=== PATIENT | female | born 1960 | race Caucasian/White ===

== ENCOUNTER → 2019-04-23 11:48 | Outpatient (CLI) | payer OTHER, SELFPAY ==
--- NOTE | 2019-04-23 | DI.US.S_ITS ---
PROCEDURE: US THYROID INDICATIONS: THYROTOXICOSIS, UNSPECIFIED WITHOUT THYROTOXIC CRISIS TECHNIQUE: Real-time scanning was performed of the thyroid gland, with image documentation. COMPARISON: [facility], US, THYROID, 10/05/2009, 9:03. FINDINGS: Right: Thyroid lobe measures 5.7 x 1.9 x 1.8 cm, and is homogeneous in echotexture. Left: Thyroid lobe measures 4.8 x 1.4 x 1.4 cm, and is homogenous in echotexture. Isthmus: 4.0 mm thick. Nodule number: 1 Location: Right mid Size: Unchanged at 2.8 x 1.5 x 2.1 cm. Composition: Predominately solid Echogenicity: Hypoechoic Shape: wider than tall. Margins: Smooth Echogenic foci: Internal punctate foci. Total points: 7 ACR TI-RADS category: Highly suspicious Nodule number: 2 Location: Right isthmus Size: Decreased at 0.9 x 20 mg 0 cm. Composition: Solid Echogenicity: Hypoechoic Shape: wider than tall. Margins: Smooth Echogenic foci: None Total points: 4 ACR TI-RADS category: Moderately suspicious Nodule number: 3 Location: Right mid Size: 0.9 x 0.9 x 0.9 cm. Composition: Solid Echogenicity: Hypoechoic Shape: wider than tall. Margins: Smooth Echogenic foci: None Total points: 4 ACR TI-RADS category: Moderately suspicious Nodule number: 4 Location: Right inferior Size: No measuring 1.8 x 1.4 1.3 cm Composition: Solid Echogenicity: Hypoechoic Shape: wider than tall. Margins: Smooth Echogenic foci: Macrocalcification Total points: 5 ACR TI-RADS category: Moderately suspicious Nodule number: 5 Location: Left lateral Size: Unchanged at 0.8 x 0.6 x 0.6 Composition: Solid Echogenicity: Hypoechoic Shape: wider than tall. Margins: Smooth Echogenic foci: Punctate echogenic foci Total points: 7 ACR TI-RADS category: Highly suspicious Nodule number: 6 Location: Left inferior Size: Unchanged 0.7 x 0.5 x 0.7 Composition: Solid Echogenicity: Hypoechoic Shape: wider than tall. Margins: Smooth Echogenic foci: Internal echogenic punctate foci Total points: 7 ACR TI-RADS category: Highly suspicious IMPRESSION: There are 2 new right thyroid nodules; otherwise nodules appear stable from prior examination. Recommend continued followup ultrasound and/or biopsy as detailed below. ACR TI-RADS definitions and recommendations: TI-RADS 1 (benign): 0 points. FNA not needed. TI-RADS 2 (not suspicious): 2 points. FNA not needed. TI-RADS 3 (mildly suspicious): 3 points. * FNA if 2.5 cm or larger, follow up if 1.5 cm or larger (at 1, 3, and 5 years). TI-RADS 4 (moderately suspicious): 4-6 points. * FNA if 1.5 cm or larger, follow up if 1 cm or larger (at 1, 2, 3, and 5 years). TI-RADS 5 (highly suspicious): 7 points or more. * FNA if 1 cm or larger, follow up if 0.5 cm or larger (every year for 5 years). Dictated by: Tony ARZATE Interpreted: Travis Lama MD on 04/23/2019 at 16:05 Approved by: Travis Lama M.D. on 04/23/2019 at 21:17
== END ==
PROVIDERS: PCP Nurse Practitioner Family; Visit Provider Nurse Practitioner Family
DX: E05.90 Thyrotoxicosis, unspecified without thyrotoxic crisis or storm (principal); E04.2 Nontoxic multinodular goiter
CPT/HCPCS: 76536

== ENCOUNTER → 2020-04-05 15:42 | Outpatient (CLI) | payer OTHER, SELFPAY ==
--- NOTE | 2020-04-05 15:45 | DI.US.S_ITS ---
PROCEDURE: US THYROID INDICATIONS: Nontoxic multinodular goiter TECHNIQUE: Real-time scanning was performed of the thyroid gland, with image documentation. COMPARISON: [facility], US, US THYROID, 04/23/2019, 12:06. FINDINGS: Right: Thyroid lobe measures 5.8 x 1.8 x 2.7 cm, and is homogeneous in echotexture. Left: Thyroid lobe measures 5.3 x 1.4 x 2.0 cm, and is homogenous in echotexture. Isthmus: 4.0 mm thick. Nodule number: 1 Location: Right mid Size: Unchanged at 2.9 x 1.6 x 1.9 cm. Composition: Mixed cystic and solid Echogenicity: Heterogeneous Shape: wider than tall. Margins: Smooth Echogenic foci: None Total points: 3 ACR TI-RADS category: Mildly suspicious Nodule number: 2 Location: Right isthmus Size: Unchanged 0.9 x 0.7 x 0.3 cm. Composition: Solid Echogenicity: Hypoechoic Shape: wider than tall. Margins: Smooth Echogenic foci: None Total points: 4 ACR TI-RADS category: Moderately suspicious Nodule number: 3 Location: Right mid Size: Unchanged 1.0 x 0.7 x 0.8 cm. Composition: Solid Echogenicity: Hypoechoic Shape: wider than tall. Margins: Smooth Echogenic foci: None Total points: 4 ACR TI-RADS category: Moderately suspicious Nodule number: 4 Location: Right inferior Size: Decreased at 1.4 x 1.1 x 1.3 cm. Composition: Solid Echogenicity: Heterogeneous Shape: wider than tall. Margins: Ill-defined Echogenic foci: Macro calcification Total points: 5 ACR TI-RADS category: Moderately suspicious Nodule number: 5 Location: Left mid Size: Unchanged 0.8 x 0.5 x 0.6 Composition: Solid Echogenicity: Heterogeneous Shape: wider than tall. Margins: Smooth Echogenic foci: None Total points: 5 ACR TI-RADS category: Moderately suspicious Nodule number: 6 Location: Left inferior Size: Unchanged 0.8 x 0.5 x 0.9 Composition: Solid Echogenicity: Hypoechoic Shape: wider than tall. Margins: Smooth Echogenic foci: None Total points: 4 ACR TI-RADS category: Moderately suspicious IMPRESSION: Stable appearance of bilateral thyroid nodules. ACR TI-RADS definitions and recommendations: TI-RADS 1 (benign): 0 points. FNA not needed. TI-RADS 2 (not suspicious): 2 points. FNA not needed. TI-RADS 3 (mildly suspicious): 3 points. * FNA if 2.5 cm or larger, follow up if 1.5 cm or larger (at 1, 3, and 5 years). TI-RADS 4 (moderately suspicious): 4-6 points. * FNA if 1.5 cm or larger, follow up if 1 cm or larger (at 1, 2, 3, and 5 years). TI-RADS 5 (highly suspicious): 7 points or more. * FNA if 1 cm or larger, follow up if 0.5 cm or larger (every year for 5 years). Dictated by: Tony ARZATE Interpreted: Katty Saavedra MD on 04/05/2020 at 16:43 Approved by: Katty Saavedra M.D. on 04/05/2020 at 17:28
== END ==
PROVIDERS: PCP Internal Medicine; Referring Provider Internal Medicine; Visit Provider Internal Medicine
DX: E04.2 Nontoxic multinodular goiter (principal)
CPT/HCPCS: 76536

== ENCOUNTER → 2021-03-14 10:49 | Outpatient (CLI) | payer OTHER, SELFPAY ==
--- NOTE | 2021-03-14 | DI.RAD.S_ITS ---
PROCEDURE: XR CHEST 2V INDICATIONS: COUGH TECHNIQUE: 2 views of the chest were acquired. COMPARISON: None. FINDINGS: Surgical changes and devices: None. Lungs and pleura: Minimal streaky bibasilar opacities likely representing atelectasis. No focal consolidation. No pleural effusions or pneumothorax. Mediastinum: Mediastinal contours are normal. Heart size is normal. Bones and chest wall: No suspicious bony abnormalities. Soft tissues appear unremarkable. IMPRESSION: Minimal streaky bibasilar opacities likely representing atelectasis. No focal consolidation. Dictated by: Antonio Melendrez M.D. on 03/14/2021 at 11:27 Approved by: Antonio Melendrez M.D. on 03/14/2021 at 11:27
== END ==
PROVIDERS: PCP Internal Medicine; Referring Provider Internal Medicine; Visit Provider Internal Medicine
DX: R05.9 Cough, unspecified (principal)
CPT/HCPCS: 71046

== ENCOUNTER → 2021-05-16 12:46 | Outpatient (CLI) | payer OTHER, SELFPAY ==
--- NOTE | 2021-05-16 | DI.US.S_ITS ---
PROCEDURE: US THYROID INDICATIONS: nontoxic multinodular goiter TECHNIQUE: Real-time scanning was performed of the thyroid gland, with image documentation. COMPARISON: [facility], US, US THYROID, 04/05/2020, 16:09. FINDINGS: Right: Thyroid lobe measures 6 x 1.8 x 2.9 cm, and is homogeneous in echotexture. Left: Thyroid lobe measures 5.1 x 2.2 x 1.3 cm, and is homogenous in echotexture. Isthmus: 4 mm thick. Nodule number: 1 (previously nodule 5) Location: Left mid Size: 0.8 x 0.5 x 0.8 cm (previously 0.8 x 0.5 x 0.6 cm) Composition: Solid Echogenicity: Hypoechoic Shape: Wider than tall Margins: Smooth Echogenic foci: None Total points: 4 ACR TI-RADS category: Moderately suspicious Nodule number: 2 (previously nodule 6) Location: Left inferior Size: 0.8 x 0.6 x 0.5 cm (previously 0.8 x 0.5 x 0.9 cm) Composition: Solid Echogenicity: Hypoechoic Shape: Wider than tall Margins: Smooth Echogenic foci: None Total points: 4 ACR TI-RADS category: Moderately suspicious Nodule number: 3 (previously nodule 2) Location: Right isthmus Size: 0.9 x 0.6 x 0.6 cm (previously 0.9 x 0.7 x 0.7 cm) Composition: Solid Echogenicity: Hypoechoic Shape: Wider than tall Margins: Smooth Echogenic foci: None Total points: 4 ACR TI-RADS category: Moderately suspicious Nodule number: 4 (previously nodule 1) Location: Right mid Size: 3.1 x 1.6 x 1.9 cm (previously 2.9 x 1.6 x 1.9 cm) Composition: Mixed cystic and solid Echogenicity: Heterogeneous Shape: Wider than tall Margins: Smooth Echogenic foci: None Total points: 3 ACR TI-RADS category: Mildly suspicious Nodule number: 5 (previously nodule 3) Location: Right mid Size: 0.9 x 0.9 x 0.8 cm (previously 1.0 x 0.7 x 0.8 cm) Composition: Solid Echogenicity: Hypoechoic Shape: Wider than tall Margins: Smooth Echogenic foci: None Total points: 4 ACR TI-RADS category: Moderately suspicious Nodule number: 6 (previously nodule 4) Location: Right inferior Size: 1.2 x 1.3 x 1.3 cm (previously 1.4 x 1.2 x 1.3 cm) Composition: Predominantly solid Echogenicity: Heterogeneous Shape: Wider than tall Margins: Smooth Echogenic foci: None Total points: 4 ACR TI-RADS category: Moderately suspicious IMPRESSION: Stable bilateral thyroid nodules. ACR TI-RADS definitions and recommendations: TI-RADS 1 (benign): 0 points. FNA not needed. TI-RADS 2 (not suspicious): 2 points. FNA not needed. TI-RADS 3 (mildly suspicious): 3 points. * FNA if 2.5 cm or larger, follow up if 1.5 cm or larger (at 1, 3, and 5 years). TI-RADS 4 (moderately suspicious): 4-6 points. * FNA if 1.5 cm or larger, follow up if 1 cm or larger (at 1, 2, 3, and 5 years). TI-RADS 5 (highly suspicious): 7 points or more. * FNA if 1 cm or larger, follow up if 0.5 cm or larger (every year for 5 years). Dictated by: Vikas Wright M.D. on 05/16/2021 at 16:44 Approved by: Vikas Wright M.D. on 05/16/2021 at 16:53
== END ==
PROVIDERS: PCP Internal Medicine; Referring Provider Internal Medicine; Visit Provider Internal Medicine
DX: E04.2 Nontoxic multinodular goiter (principal)
CPT/HCPCS: 76536

== ENCOUNTER → 2021-06-15 15:41 | Outpatient (CLI) | payer OTHER, SELFPAY ==
--- NOTE | 2021-06-15 | DI.MG.S_ITS ---
BILATERAL DIGITAL SCREENING MAMMOGRAM 3D/2D WITH CAD: 06/15/2021 CLINICAL: Routine screening. Comparison is made to exams dated: 02/19/2019 mammogram, 01/22/2019 mammogram, 04/20/2014 mammogram, and 12/26/2011 mammogram - [facility]. The tissue of both breasts is heterogeneously dense. This may lower the sensitivity of mammography. Current study was also evaluated with a Computer Aided Detection (CAD) system. No significant masses, calcifications, or other findings are seen in either breast. There has been no significant interval change. IMPRESSION: NEGATIVE There is no mammographic evidence of malignancy. A 1 year screening mammogram is recommended. This exam was interpreted at Station ID: [id number]. NOTE: For mammograms, a report in lay terms will be sent to the patient. Approximately 15% of breast malignancies will not be visualized mammographically. In the management of a palpable breast mass, a negative mammogram must not discourage biopsy of a clinically suspicious lesion. Electronically Signed By: Joe Hamm M.D., jr/maris:06/15/2021 16:48:13 letter sent: Normal Exam ACR BI-RADS Category 1: Negative 3341F
== END ==
PROVIDERS: PCP Internal Medicine; Referring Provider Internal Medicine; Visit Provider Internal Medicine
DX: Z12.31 Encounter for screening mammogram for malignant neoplasm of breast (principal)
CPT/HCPCS: 77063; 77067

== ENCOUNTER → 2022-03-28 14:52 | Outpatient (CLI) | payer BC, SELFPAY ==
--- NOTE | 2022-04-12 14:53 | DIAB.MNT ---
Initial Diabetes Medical Nutrition Therapy Assessment Name: Sheila Freeman Date: 03/28/22 Time: 310-405p Dx: Type II Diabetes Provider: Romo Sheila presents for initial visit regarding T2DM. States she has had DM for about 1 year. +FH of DM with brother and maternal grandfather. Endorses h/o disordered eating (binge/purge). Reports h/o restrictive diets such as keto triggering feelings of disordered eating. Sheila states her passed in 2013 and dinner is a difficult time of day for her as they would always share this meal together. Diet Recall: 730a: bullet proof coffee, eggs, chao OR low carb yogurt with 1/2 c berries 115p: salad with veggies and protein (cheese, tuna, chx) 6p: protein and veggies Reports previous diet of no sugar, no fast food, no carbs. Now fast food intake 1x per week. Candy dish at work difficult to avoid. Reads food labels. ETOH: 2-4 beers per night, current working on reduction. Anthropometrics: Ht: 67 Wt: 192# per referral Physical Activity: Walks daily 30-60 minutes with dogs. has a weighted bar, treadmill and pilates chair. Interested in restarting pilates classes. Averages 5094-8509 steps per day, weekends 10,000. Self-Monitoring Blood Glucose: None. Not interested in checking. Diabetes Medications: 500mg Metformin Supplements: Berberine and Cinnamon bark Pertinent Labs: Per referral: 2020: 8.5% 08/2021: 5.7% 01/2022: 6.5% Past Medical History: cholecystectomy, tonsillectomy, HTN, depression, DM, Hyperthyroid, high cholesterol Nutrition Rx: Plate Method (30-45g CHO per meal) Nutrition Diagnosis: - Nutrition and food related knowledge deficit r/t new dx of Dm aeb pt report and hgA1c - Excessive ETOH intake r/t stage of change aeb diet recall and pt report Intervention: This participant was very receptive. Provided appropriate educational handouts. Discussed the following topics: Completed intake assessment. Discussed barriers to care. HgA1c, its correlation to blood glucose numbers, and rationale for goal Plate Method, impact of macronutrients on blood sugar, meal timing, carbohydrate counting, pairing macronutrients and spreading out carbohydrates for better blood glucose management Recommended servings for carbohydrates at meals and snacks ETOH recs Brainstormed appropriate meal plan based on food preferences Role of physical activity and following provider guidelines for safety Aiming for managing DM without triggering disordered eating: avoid over restriction, aim for moderation Created SMART goals for patient self-care and success. Goals: Try to incorporate complex carbohydrates Look into pilates Follow-up: LESTER SCHWARTZ follow-up in 3-4 weeks Virginia Carrasco RDN, EFREN Certified Diabetes Care and Racker [employer] P: [phone] Thank you for this referral
== END ==
PROVIDERS: PCP Internal Medicine; Referring Provider Naturopath; Visit Provider Naturopath
DX: E11.9 Type 2 diabetes mellitus without complications (principal); Z79.84 Long term (current) use of oral hypoglycemic drugs; Z71.3 Dietary counseling and surveillance
CPT/HCPCS: 97802

== ENCOUNTER → 2022-07-31 12:51 | Outpatient (CLI) | payer BC, SELFPAY ==
--- NOTE | 2022-07-31 13:02 | DI.DEXA.S_ITS ---
Indication: postmenopausal; screening for osteoporosis; parental hip fracture; Referring Provider: JOHNNY FAITH Study: Bone densitometry was performed. Exam Date: July 31, 2022 Accession number: [id number] Bone Density: Region BMD T-score Z-score Classification AP Spine(L1-L4) 0.969 -0.7 0.8 Normal Femoral Neck (Left) 0.707 -1.3 0.1 Osteopenia Total Hip (Left) 0.858 -0.7 0.4 Normal Femoral Neck (Right) 0.707 -1.3 0.1 Osteopenia Total Hip (Right) 0.868 -0.6 0.4 Normal Total Hip Mean 0.863 -0.7 0.4 Normal World Health Organization criteria for BMD impression classify patients as: Normal (T-score at or above -1.0), Osteopenia (T-score between -1.0 and -2.5), or Osteoporosis (T-score at or below -2.5). 10-year Fracture Risk(1): Major Osteoporotic Fracture 15% Hip Fracture 0.6% Reported Risk Factors: [place] (), Neck BMD=0.707, BMI=30.1, parental fracture (1) FRAX(R) Version 3.08. Fracture probability calculated for an untreated patient. Fracture probability may be lower if the patient has received treatment. Impression: The patient has low bone mass, based on the Left Femoral Neck T-score. The patient has an estimated ten-year risk of hip fracture of 0.6% and an estimated ten-year risk of major fracture of 15%, based on the WHO FRAX algorithm. The patient has risk factors, including: parental hip fracture. Discussion: BONE DENSITY IS LOW AT ONE OR MORE SKELETAL SITES. This patient's lowest T-score is low at one or more skeletal sites. It meets the World Health Organization's (WHO) criteria for ?low bone mass? (T-score between -1.0 and -2.5). The patient's 10-year risk of fracture as calculated by FRAX is less than the threshold where pharmacological therapy is recommended by the National Osteoporosis Foundation (NOF). However, all treatment decisions require clinical judgment and consideration of individual patient factors, including patient preferences, comorbidities, previous drug use, risk factors not captured in the FRAX model (e.g., frailty, falls, vitamin D deficiency, increased bone turnover, interval significant decline in bone density) and possible under or overestimation of fracture risk by FRAX. The patient should follow a healthful lifestyle (good nutrition with adequate calcium and vitamin D, and appropriate weight-bearing exercise). Follow-Up: Consider repeating this study in 2 to 3 years to reassess this patient's status, or sooner if there is some new clinical indication. Reported by: TRACE CONROY MD on 07/31/2022 1:08:00 PM.
== END ==
PROVIDERS: PCP Internal Medicine; Referring Provider Internal Medicine; Visit Provider Internal Medicine
DX: E05.90 Thyrotoxicosis, unspecified without thyrotoxic crisis or storm (principal); Z78.0 Asymptomatic menopausal state; Z13.820 Encounter for screening for osteoporosis; M85.852 Other specified disorders of bone density and structure, left thigh
CPT/HCPCS: 77080

== ENCOUNTER → 2023-04-11 16:26 | Outpatient (CLI) | payer BC, SELFPAY ==
--- NOTE | 2023-04-11 | DI.MG.S_ITS ---
BILATERAL DIGITAL SCREENING MAMMOGRAM 3D/2D WITH CAD: 04/11/2023 CLINICAL: Routine screening. Comparison is made to exams dated: 06/15/2021 mammogram - [facility], 01/22/2019 mammogram, and 04/20/2014 mammogram - [facility]. Both breasts are heterogeneously dense, which may obscure small masses (category c / 51-75% glandular tissue). Current study was also evaluated with a Computer Aided Detection (CAD) system. No significant masses, calcifications, or other findings are seen in either breast. There has been no significant interval change. IMPRESSION: NEGATIVE There is no mammographic evidence of malignancy. A 1 year screening mammogram is recommended. Based on the Tyrer Cuzick model (a risk assessment model) the patient's lifetime risk is 8.4% and her 10 year risk is 3.6%. According to the ACR, ACS, and NCCN guidelines, an annual breast MRI exam along with mammogram is recommended if the patient's lifetime risk is 20% or greater. This exam was interpreted at Station ID: [id number]. NOTE: For mammograms, a report in lay terms will be sent to the patient. Approximately 15% of breast malignancies will not be visualized mammographically. In the management of a palpable breast mass, a negative mammogram must not discourage biopsy of a clinically suspicious lesion. Electronically Signed By: Fiona Martinez M.D., PH.D juan miguel/maris:04/13/2023 00:27:16 letter sent: Normal Exam ACR BI-RADS Category 1: Negative [id number]
== END ==
PROVIDERS: PCP Internal Medicine; Referring Provider Family Medicine; Visit Provider Internal Medicine
DX: Z12.31 Encounter for screening mammogram for malignant neoplasm of breast (principal)
CPT/HCPCS: 77063; 77067

== ENCOUNTER → 2023-05-02 07:51 | Outpatient (CLI) | payer BC, SELFPAY ==
--- NOTE | 2023-05-02 | DI.NM.S_ITS ---
PROCEDURE: NM UPTAKE AND SCAN RADIOPHARMACEUTICAL: 333 ?Ci I-123 sodium iodide by mouth. INDICATIONS: Nontoxic multinodular goiter TECHNIQUE: I-123 sodium iodide was administered orally. Anterior neck images were obtained, and iodine uptake by the thyroid gland calculated using filer and sander's software. COMPARISON: US, US THYROID, 04/05/2020, 16:09. US, US THYROID, 04/23/2019, 12:06. US, US THYROID, 05/16/2021, 13:06. FINDINGS: Morphology: The thyroid gland has bilobed configuration. There is increased activity in right thyroid lobe, suggesting a hyperfunctioning or 'hot' thyroid nodule. Uptake: the 6-hour thyroid uptake is 14.1%; normal ranges are from 6-18%. The 24-hour thyroid uptake is 34.4%; normal ranges are from 10-30%. IMPRESSION: 1. Mildly increased 6-hour and 24-hour radioiodine uptake. 2. Question a large hyperfunctioning nodule in the right thyroid lobe. Ultrasound multiple nodules in thyroid gland bilaterally. Dictated by: Mac Hadley M.D. on 05/03/2023 at 13:02 Approved by: Mac Hadley M.D. on 05/03/2023 at 14:07
== END ==
PROVIDERS: PCP Internal Medicine; Referring Provider Internal Medicine; Visit Provider Internal Medicine
DX: E04.2 Nontoxic multinodular goiter (principal); E05.90 Thyrotoxicosis, unspecified without thyrotoxic crisis or storm
CPT/HCPCS: 78014; A9516

== ENCOUNTER → 2024-01-13 16:45 | Outpatient (CLI) | payer BC, SELFPAY ==
--- NOTE | 2024-01-13 16:46 | DI.US.S_ITS ---
ROCEDURE: US THYROID INDICATIONS: Thyrotoxicosis with toxic multinodular goiter with TECHNIQUE: Real-time scanning was performed of the thyroid gland, with image documentation. COMPARISON: [facility], US, US THYROID, 05/16/2021, 13:06. FINDINGS: Thyroid: Right lobe measures 5.4 x 2.6 x 2.3 cm. Left lobe measures 5.0 x 1.5 x 1.9 cm. Isthmus is 0.4 cm thick. Echotexture is homogeneous. Nodule number: 1 Location: Right mid Size: 3.3 x 1.9 x 1.7 cm, previously 2.9 x 1.6 x 1.9 cm. Composition: Predominantly solid Echogenicity: Hypoechoic Shape: wider than tall. Margins: Smooth Echogenic foci: Punctate Total points: 6 ACR TI-RADS category: 4 Nodule number: 2 Location: Right inferior Size: 1.0 x 1.0 x 0.9 cm, previously 1.2 x 1.3 x 1.3 cm. Composition: Solid Echogenicity: Hypoechoic Shape: wider than tall. Margins: Smooth Echogenic foci: None Total points: 4 ACR TI-RADS category: 4 Nodule number: 3 Location: Left superior Size: 1.4 x 0.9 x 0.6 cm. Composition: Solid Echogenicity: Hypoechoic Shape: wider than tall. Margins: Smooth Echogenic foci: None Total points: 4 ACR TI-RADS category: 4 IMPRESSION: Category 4 nodules as above. Several nodules identified previously are no longer present. 1. ACR TI-RADS definitions and recommendations: TI-RADS 1 (benign): 0 points. FNA not needed. TI-RADS 2 (not suspicious): 2 points. FNA not needed. TI-RADS 3 (mildly suspicious): 3 points. * FNA if 2.5 cm or larger, follow up if 1.5 cm or larger (at 1, 3, and 5 years). TI-RADS 4 (moderately suspicious): 4-6 points. * FNA if 1.5 cm or larger, follow up if 1 cm or larger (at 1, 2, 3, and 5 years). TI-RADS 5 (highly suspicious): 7 points or more. * FNA if 1 cm or larger, follow up if 0.5 cm or larger (every year for 5 years). Dictated by: Chava Patterson M.D. on 01/14/2024 at 10:57 Approved by: Chava Patterson M.D. on 01/14/2024 at 12:18
== END ==
LOC: US 16:46
PROVIDERS: PCP Internal Medicine; Referring Provider Internal Medicine Endocrinology, Diabetes & Metabolism; Visit Provider Internal Medicine Endocrinology, Diabetes & Metabolism
DX: E05.20 Thyrotoxicosis with toxic multinodular goiter without thyrotoxic crisis or storm (principal); E04.2 Nontoxic multinodular goiter
CPT/HCPCS: 76536

== ENCOUNTER → 2024-07-28 16:10 | Outpatient (CLI) | payer BC, SELFPAY ==
--- NOTE | 2024-07-28 16:10 | DI.MG.S_ITS ---
MM screening mammo BI: 07/28/2024. BI-RADS: 1 CLINICAL: 64-year old female for bilateral screening mammogram. Tyrer-Cuzick lifetime risk of 7.9%. No personal or first-degree family history of breast cancer. PRIOR EXAMS 04/11/2023, 06/15/2021, 02/19/2019, 01/22/2019. MAMMOGRAPHY TECHNIQUE: 2D and 3D (tomosynthesis) digital mammographic views obtained, with additional images as needed for full coverage. Current study was also evaluated with a Computer Aided Detection (CAD) system. DENSITY C. The breasts are heterogeneously dense, which may obscure small masses. MAMMOGRAPHY FINDINGS Bilateral: No suspicious mass, asymmetry, microcalcification, or other abnormality seen. No significant change from comparison. IMPRESSION: * No evidence of malignancy. RECOMMENDATIONS Bilateral * Annual screening mammography. OVERALL ASSESSMENT CATEGORY BI-RADS-1: Negative. The [employer] recommends annual screening mammography beginning at age 40 for women with average risk of breast cancer. ELECTRONICALLY SIGNED: Meagan Murphy M.D. on 07/29/2024 at 08:40:26 AM PT Interpreting Station ID: [id number]
== END ==
LOC: MAMMO 16:10
PROVIDERS: PCP Registered Nurse; Referring Provider Registered Nurse; Visit Provider Registered Nurse
DX: Z12.31 Encounter for screening mammogram for malignant neoplasm of breast (principal); R92.333 Mammographic heterogeneous density, bilateral breasts
CPT/HCPCS: 77063; 77067

== ENCOUNTER → 2024-11-10 15:22 | Outpatient (CLI) | payer BC, SELFPAY ==
--- NOTE | 2024-11-10 15:23 | DI.US.S_ITS ---
PROCEDURE: US PERIPH VENOUS UP EXTREM LT INDICATIONS: HARD PAINFUL ARM LUMP/INJURY ?DEEP VEIN THROMBOSIS TECHNIQUE: Real-time imaging, as well as color and pulse Doppler interrogation, was performed of the upper extremity deep veins from the inferior neck to the antecubital fossa. COMPARISON: None. FINDINGS: The visualized portions of the subclavian vein, axillary, and brachial veins are free of intraluminal thrombus. Where physically possible, the veins are normally compressible. Color and pulse Doppler demonstrate normal intraluminal flow, with expected phasicity and pulsatility. Additional scanning of the cephalic and basilic veins of the superficial system demonstrates normal compressibility, without thrombus. The left internal jugular vein was collapsed for most of the exam and was not well seen. IMPRESSION: No findings of acute upper extremity deep venous thrombosis can be seen. Collapsed appearance of the left internal jugular vein, which could be anatomic variant versus sequela of old thrombus resulting in fibrosis. Dictated by: aHri Olmos M.D. on 11/10/2024 at 17:06 Approved by: Hari Olmos M.D. on 11/10/2024 at 17:08
== END ==
PROVIDERS: PCP Registered Nurse; Referring Provider Registered Nurse; Visit Provider Registered Nurse
DX: S49.92XA Unspecified injury of left shoulder and upper arm, initial encounter (principal); X58.XXXA Exposure to other specified factors, initial encounter
CPT/HCPCS: 93971